=== PATIENT | female | born 1985 | race Caucasian/White ===

== ENCOUNTER 2019-10-18 12:47 | Outpatient (CLI) | payer MEDICAID ==
[2019-10-18] MEDS ORDERED: IBUP-1223 PO (13:45)
== END 2019-10-18 23:59 | disposition home or self-care (01) ==
LOC: STAR 12:47
PROVIDERS: ATTEND Obstetrics & Gynecology Female Pelvic Medicine and Reconstructive Surgery
DX: Z02.9 Encounter for administrative examinations, unspecified (principal)

== ENCOUNTER 2020-08-28 13:34 | Emergency (ER) | payer MEDICAID ==
[~2020-08-28] VITALS: Ht 162.6 cm; Wt 64.0 kg
[~2020-08-28 13:34] MED LIST: IBUP-1223 PO
[2020-08-28] MEDS ORDERED: LORazepam 2 MG/ML, 1ML ONE (13:56)
[2020-08-28] MEDS ORDERED: SODIUM CHLORIDE 0.9% 1,000ML IVBOLUS ONE ×2 (14:00→15:00)
[2020-08-28] MEDS ORDERED: LORazepam 2 MG/ML, 1ML IVPush ONE (14:00)
[2020-08-28 14:05] LABS: BASOPHILS % (AUTO) 0 % (0-1); EOSINOPHILS % (AUTO) 0 % (1-7); LYMPHOCYTES % (AUTO) 9 % (22-44); MEAN CORPUSCULAR HEMOGLOBIN 28.7 pg (27.0-34.8); MEAN CORPUSCULAR HGB CONC 33.9 g/dL (32.4-35.8); MEAN PLATELET VOLUME 8.8 fL (7.4-10.4); MONOCYTES % (AUTO) 4 % (2-9); NEUTROPHILS % (AUTO) 86 % (42-75); PLATELET COUNT 286 x10^3/uL (130-400); RED BLOOD COUNT 4.47 x10^6/uL (3.82-5.3); RED CELL DISTRIBUTION WIDTH 13.1 % (9.6-15.2)
[2020-08-28 14:07] LABS: MD NO
[2020-08-28 14:13] LABS: ALANINE AMINOTRANSFERASE 23 U/L (12-78); ALBUMIN 4.6 g/dL (3.4-5.0); ANION GAP 10 mmol/L (5-15); CALCIUM 9.2 mg/dL (8.5-10.1); CHLORIDE 109 mmol/L (98-107); CREATININE 1.15 mg/dL (0.55-1.02)
[2020-08-28 14:15] LABS: ALKALINE PHOSPHATASE 40 U/L (45-117); TOTAL PROTEIN 8.5 g/dL (6.4-8.2)
[2020-08-28 16:30] VITALS: BP 132/74
== END 2020-08-28 16:32 | disposition home or self-care (01) ==
LOC: ED 14:21
DX: R10.84 Generalized abdominal pain (principal); R11.2 Nausea with vomiting, unspecified; E86.0 Dehydration
CPT/HCPCS: 36415; 80053; 83690; 83735; 85025; 96361; 96374; 99283; J2060; J7030